=== PATIENT | female | born 1975 | race Caucasian/White ===

== ENCOUNTER 2019-03-06 11:15 | Day surgery (SDC) | payer OTHER ==
[2019-03-05 14:41] VITALS: BMI 32.5
[2019-03-06] VITALS (23 sets, daily range): BP systolic 100–166; BP diastolic 63–97; PULSE 62–84; RESP 15–17; Ht 162.6 cm; Wt 100.0 kg
[~2019-03-06] VITALS: Ht 162.6 cm; Wt 100.0 kg
[2019-03-06] MEDS ORDERED: HYDR50TA3 ORAL (11:34)
[2019-03-06] MEDS ORDERED: LACTATED RINGER'S 1,000 ML IV SCH (12:30)
--- NOTE | 2019-03-06 13:12 | PREAC ---
Date/Time of Note Date/Time of Note DATE: 03/06/19 TIME: 12:45 Anesthesia Eval and Record Evaluation Time Pre-Procedure Interview DATE: 03/06/19 TIME: 12:45 Age 44 Sex female NPO: 8 hrs Preoperative diagnosis Tongue lesion Planned procedure Excision of tongue lesion Past Medical History Past Medical History: Includes Cardio: HTN GI: Obesity Surgery & Anesthesia Issues No known issue Meds Anticoagulation: No Beta Norma within 24 hr: No Reason Beta Norma not given: Pt. not on B-Norma Reported Medications Hydrochlorothiazide* (Hydrochlorothiazide*) 50 Mg Tab, 1 TAB ORAL DAILY 03/06/19 Current Medications Lactated Ringer's 1,000 ml @ 25 mls/hr Q24H IV ; Start 03/06/19 at 12:30 Meds reviewed: Yes Allergies Coded Allergies: No Known Allergy (Unverified , 03/06/19) Allergies Reviewed: Yes Labs/Studies Labs Reviewed: Reviewed by anesthesiologist test: Negative Pre-procedure Exam Last vitals Vital Signs Date Temp Pulse Resp B/P (MAP) Pulse Ox O2 O2 Flow FiO2 Time Delivery Rate 03/06/19 97.6 75 16 136/92 99 Room Air 12:16 (107) Airway: Adequate mouth opening Mallampati: Mallampati II Teeth: Normal Lung: Normal Heart: Normal ASA Physical Status ASA physical status: 2 Emergency: None Planned Anesthetic General/MAC: ETT Planned Pain Management Parenteral pain med Pre-operative Attestations Prior to commencing anesthesia and surgery, the patient was re-evaluated, there was verification of: *The patient's identity *The results of appropriate recent lab work and preoperative vital signs *The above evaluation not changing prior to induction *Anesthetic plan, risk benefits, alternative and complications discussed with patient/family; questions answered; patient/family understands, accepts and wishes to proceed. SRAVAN GORE MD Mar 06, 2019 12:55
[2019-03-06] MEDS ORDERED: PROPOFOL 20 ML ONE (13:14)
[2019-03-06] MEDS ORDERED: NEOSTIGMINE 3 MG/3 ML SYRINGE ONE (13:14)
[2019-03-06] MEDS ORDERED: SUCCINYLCHOLINE CHLORIDE 100 MG/5 ML SYG IV ONE (13:14)
[2019-03-06] MEDS ORDERED: GLYCOPYRROLATE 0.4 MG INJ ONE (13:14)
[2019-03-06] MEDS ORDERED: ROCURONIUM 50 MG INJ ONE (13:14)
[2019-03-06] MEDS ORDERED: LIDOCAINE 2% (SDV) 5 ML INJ ONE (13:14)
[2019-03-06] MEDS ORDERED: MEPERIDINE 100 MG INJ ONE (13:15)
--- NOTE | 2019-03-06 13:41 | HPN ---
Date/Time of Note Date/Time of Note DATE: 03/06/19 TIME: 13:41 Interval H&P Admission Note Pt. seen H&P reviewed: No system changes ORIN SINGER MD Mar 06, 2019 13:41
[2019-03-06] MEDS ORDERED: BUPIVACAINE 0.25% (MPF) 30 ML INJ ONE (13:48)
[2019-03-06] MEDS ORDERED: ONDANSETRON 4 MG INJ ONE (14:07)
[2019-03-06] MEDS ORDERED: METOCLOPRAMIDE 10 MG INJ ONE (14:07)
[2019-03-06] MEDS ORDERED: MIDAZOLAM 1 MG/ML 2 ML INJ IV PRN (14:30)
[2019-03-06] MEDS ORDERED: FENTAnyl 50 MCG/ML VIAL IV PRN ×3 (14:30)
[2019-03-06] MEDS ORDERED: DIPHENHYDRAMINE 50 MG INJ IV PRN (14:30)
[2019-03-06] MEDS ORDERED: METOCLOPRAMIDE 10 MG INJ IV PRN (14:30)
[2019-03-06] MEDS ORDERED: ONDANSETRON 4 MG INJ IV PRN (14:30)
[2019-03-06] MEDS ORDERED: MEPERIDINE 25 MG INJ IV PRN (14:30)
[2019-03-06] MEDS ORDERED: OXYCODONE/ACETAMINOPHEN (5/325) TAB PO PRN ×2 (14:30)
--- NOTE | 2019-03-06 14:42 | SIPON ---
Date/Time of Note Date/Time of Note DATE: 03/06/19 TIME: 14:41 Operative Report Preoperative Diagnosis Right tongue mass Postoperative Diagnosis Same Operation/Procedure Performed Excision tongue mass Surgeon see signature line nursing assistant None Anesthesia: general, MAC Estimated blood loss: minimal Transfusion Required none Specimen right tongue mass Grafts/Implants none Complications none ORIN SINGER MD Mar 06, 2019 14:42
--- NOTE | 2019-03-07 08:28 | OPR ---
DATE OF OPERATION: 03/06/2019 SURGEON: Mansoor Acosta MD. ANESTHESIA: General. PREOPERATIVE DIAGNOSIS: Right tongue lesion. POSTOPERATIVE DIAGNOSIS: Right tongue lesion. OPERATION PERFORMED: Excision of right tongue lesion. INDICATIONS: This is a 44-year-old lady who presented with a right tongue lesion. It was fairly lar ge and broad-based. We discussed observation versus excision of the mass and excision was clearly ad visable. We had a complete discussion about the risks, benefits, rational alternatives to surgery, w hich included but were not limited to bleeding, infection, scar, numbness and recurrence of the mass and need for further treatment, dysphagia, chipped teeth, damage to the lips other oral mucosa and ot her rare complications of surgery or anesthesia that could even include . The patient has all t hese issues and she would like to proceed. Please note we had certainly offered her the option to do this procedure in the office, but given the size and location, it was deemed to be safer under anest hesia due to the ability to control pain and bleeding. DESCRIPTION OF PROCEDURE: The patient was identified in the preoperative holding area and informed c onsent was confirmed. The patient was transferred to the operating room and general anesthesia was i nduced using an LMA. The lesion was identified and the base of the mass was infiltrated with lidocai ne with epinephrine. After allowing adequate time for the hemostatic effect to set in, I did proceed to perform an incision directly at the interface of the mass and the normal tongue muscle tissue. I deepened the dissection with Bovie in order to remove the entirety of the mass while leaving the nor mal tongue tissue in as natural state as possible. The mass was readily excised and I cauterized the lateral tongue musculature. The lesion was approximately 1 to 1.5 cm and was at the right lateral p osterior tongue about the posterior aspect of the mid third of the tongue. Having obtained excellent hemostasis I proceeded with closure. I used 4-0 chromic horizontal mattress sutures to provide for a tight closure. Following placement of multiple sutures, the operation was concluded. All instrume nts were removed. Instrument and sponge counts were correct, the patient was returned to anesthesia and awakened without complication. ESTIMATED BLOOD LOSS: Minimal. COMPLICATIONS: None. SPECIMEN: Right lateral tongue mass. MEDICATIONS: Ancef. Deep venous thrombosis prophylaxis. SCDs. COMPLICATIONS: None. Dictated By: MANSOOR PINA/MEENA Conf#: [id number] [facility]#: [id number]
== END 2019-03-06 16:15 | disposition home or self-care (01) ==
LOC: SDS 11:15
PROVIDERS: ATTEND Otolaryngology
DX: D10.1 Benign neoplasm of tongue (principal)
CPT/HCPCS: 41113; 84703; 88305; J2175; J2405; J2765; Z7512; Z7610; J2710